=== PATIENT | male | born 1945 | race Hispanic/Latino ===

== ENCOUNTER 2017-04-09 10:38 | Day surgery (SDC) | payer BC ==
--- NOTE | 2017-04-09 12:18 | Anesthesia Consultation ---
Anesthesia Consult and Med Hx Date of service: 04/09/17 - Airway Anesthetic Teeth Evaluation: Good ROM Head & Neck: Adequate Mental/Hyoid Distance: Adequate Mallampati Class: Class I Intubation Access Assessment: Good - Pulmonary Exam CTA: Yes - Cardiac Exam Cardiac Exam: RRR - Pre-Operative Health Status ASA Pre-Surgery Classification: ASA2 - Pulmonary Hx Smoking: No Hx Sleep Apnea: Yes (DX SLEEP APNEA , NO CPAP USE) - Cardiovascular System Hx Hypertension: No Hx Coronary Artery Disease: (elevated cholesterol) - Central Nervous System Hx Back Pain: Yes (NECK PAIN) - Gastrointestinal Hx Gastroesophageal Reflux Disease: No - Endocrine Hx Renal Disease: (urethral injury) - Other Systems Hx Alcohol Use: Yes (WINE QD) Hx Substance Use: No Hx Cancer: No
--- NOTE | 2017-04-09 12:19 | Anesthesia Day of Surgery ---
Anesthesia Day of Surgery - Day of Surgery Patient Examined: Yes Patient H&P Reviewed: Yes Patient is NPO: Yes
[2017-04-09] MEDS ORDERED: ANCEF/STERILE WATER 2 GM/20 ML IV NR (13:00)
[2017-04-09] MEDS ORDERED: LACTATED RINGERS 1,000 ML IV SCH (13:00)
[2017-04-09] MEDS ORDERED: DIPRIVAN 10 MG/ML IV ONE (14:11)
[2017-04-09] MEDS ORDERED: ZEMURON IV ONE (14:12)
[2017-04-09] MEDS ORDERED: XYLOCAINE MPF 2% ONE (14:12)
[2017-04-09] MEDS ORDERED: ZOFRAN ONE (14:12)
[2017-04-09] MEDS ORDERED: DECADRON ONE (14:12)
[2017-04-09] MEDS ORDERED: DILAUDID ONE (14:12)
[2017-04-09] MEDS ORDERED: WATER FOR IRRIG STERILE IR ONE ×2 (14:50→15:30)
[2017-04-09] MEDS ORDERED: NACL 0.9% IR ONE (15:30)
[2017-04-09] MEDS ORDERED: NEOSPORIN GU IR ONE ×2 (15:30→15:33)
--- NOTE | 2017-04-09 16:06 | Post Operative Note ---
Date of procedure: 04/09/17 Pre-op diagnosis: hernia and stricture Post-op diagnosis: same Findings: as above Procedure: cysto dviu repair of hernia Anesthesia: GETA Surgeon: JOSSELINE BURNS Estimated blood loss: minimal Pathology: list (sca) Specimen disposition: to lab Condition: stable Disposition: PACU
[2017-04-09] MEDS ORDERED: DILAUDID IV PRN (16:08)
[2017-04-09] MEDS ORDERED: ZOFRAN IV PRN (16:08)
--- NOTE | 2017-04-09 16:09 | Discharge Summary ---
Short Stay Discharge Plan Activity: other (no straining ) Weight Bearing Status: Full Weight Bearing Diet: low fat Special Instructions: other (no straining ) Durable Medical Equipment Needed Upon Discharge: other (abdominal binder ) Follow up with: BRIAN QUESADA [Other] - 7 Days JOSSELINE BURNS MD [Staff Physician] - 7 Days
--- NOTE | 2017-04-09 16:10 | Post Anesthesia Evaluation ---
- Post Anesthesia Evaluation Patient Participated: Yes Airway Patent: Yes Stable Respiratory Function: Yes Nausea/Vomiting: No Temp > 96.8F: Yes Pain Manageable: Yes Adequeate Hydration: Yes Anesthesia Complications: No
[2017-04-09 17:47] VITALS: BP 140/86
--- NOTE | 2017-04-09 19:06 | Operative Report ---
PREOPERATIVE DIAGNOSIS: Incisional hernia. POSTOPERATIVE DIAGNOSIS: Incisional hernia. PROCEDURE: Open repair of incisional hernia with Ventralex mesh. CO-SURGEONS: Dr. Diaz and Dr. Tyson. ANESTHESIA: General. ESTIMATED BLOOD LOSS: Minimal. FINDINGS: A 4 cm abdominal wall defect. IMPLANTS: An 8 cm Ventralex circular mesh. DRAINS: None. COMPLICATIONS: None. DISPOSITION: Stable, transferred to Recovery Room. INDICATIONS: This is a 71-year-old male who previously suffered a urethral injury from a fall. He had urologic reconstruction and most recently presented to Dr. Tyson for a followup. At that time, he has noted to have a hernia. General Surgery was consulted and requested to assist with the case. Procedure's benefits have been explained to the patient. Consent was obtained. DESCRIPTION OF PROCEDURE: Dr. Tyson began and finished of the case. Please see his operative note for complete details. Once the abdominal wall defect had been exposed, then I took over. The diameter of the defect was approximately 4 cm. We made sure there was no bowel or bladder adherent to the edges. We decided based on the poor tissue quality that a primary repair would not be appropriate; therefore, Ventralex was decided upon. This was laid into place. It was opened completely. There was no bowel or bladder in between the abdominal wall and the mesh. Using 0 Ethibond interrupted sutures, we placed simple sutures closing the abdominal wall defect and incorporating the mesh. We had a very good closure. Tails were excised. The defect was completely closed and secured at this point. Thereafter, I turned the case back over to Dr. Tyson's. Please see his note for complete details. The patient tolerated the procedure well. There were no complications. All counts were correct at the end of the case. JOB# [id number] AUGUTSINA/MICHELLE
--- NOTE | 2017-04-09 20:16 | Operative Report ---
PREOPERATIVE DIAGNOSIS: Bladder and incisional suprapubic hernia with urethral stricture. POSTOPERATIVE DIAGNOSIS: Bladder and incisional suprapubic hernia with urethral stricture. PROCEDURES: ____ urethral dilatation with insertion of Bustillo catheter, suprapubic exploration with repair of incisional suprapubic hernia. SURGEON: Cornelio Tyson MD and ____ ANESTHESIA: General. FINDINGS: This is a gentleman who presented with a hernia about a year and a half after he had a suprapubic tube placed, open cystotomy and repair of traumatic urethral injury. He now presents for surgery. He has had a progressive increase in size of this hernia. He says he is voiding fine. DESCRIPTION OF PROCEDURE: The patient brought to the operating room and placed on the operating table. Following induction of anesthesia, placed in lithotomy position, prepped and draped in usual sterile fashion. Cystourethroscopy showed a stricture. We placed a wire in the bladder under fluoroscopic guidance and dilated this to 20-Spanish. The patient tolerated the procedure well. At this point, cystoscopy showed the stricture, which was short about 1 cm from the membranous junction where the injury was and it was wide open now. 16 [place] was then placed. He now presents for open surgery. His legs were placed down and he was prepped and draped in the supine position in usual sterile fashion. The bladder was partially full. A midline incision was made and the large scar was dissected free. The hernia sac was dissected and opened and there was no bowel incarcerated. The fascia was paper thin and we dissected the fascia circumferentially. At this point, we placed a mesh within the abdominal cavity, which was an inverted mesh according to the general surgeon's recommendation. This was secured and then we placed Vicryls to get rid of all the space as best as possible. The patient tolerated the procedure well. The mesh was secured with Ethibond. The space was closed and then the fascia was approximated with a 0 looped PDS, superficial fascia with Vicryl, and skin with clips. He was brought to recovery room, family notified. Minimal blood loss in stable condition. JOB# [id number] RYNE/MICHELLE
--- NOTE | 2017-04-10 14:40 | Fluoroscopy Report ---
Operative cystogram: Urethral stricture. A transurethral catheter is present in the bladder. Contrast was injected with no filling defect other than the Bustillo balloon and a normal bladder contour. No reflux.
--- NOTE | 2017-04-11 17:33 | Event Note ---
Date: 04/11/17 Routine 48hr post-op call. Pt reports that he is doing well and already back working. I encouraged him to ambulate. Denies any problems other than constipation. I will see him in f/u when he comes to see Dr. Tyson. Pt appreciative of the care and the call.
== END 2017-04-09 17:52 | disposition home or self-care (01) ==
LOC: OR 10:38
PROVIDERS: ATTEND Urology
DX: K40.90 Unilateral inguinal hernia, without obstruction or gangrene, not specified as recurrent (principal); N35.9 Urethral stricture, unspecified; G47.30 Sleep apnea, unspecified; Z98.890 Other specified postprocedural states
CPT/HCPCS: 49560; 49568; 52281; 74430; 88302; A4217; C1726; C1769; C1781; J0690; J1100; J1170; J2405; J2704; J7120; Q9967